=== PATIENT | male | born 1995 | race Caucasian/White ===

== ENCOUNTER 2016-10-07 14:47 | Emergency (ER) | payer MEDICAID ==
[2016-10-07 15:01] VITALS: BMI 28.1
[2016-10-07] MEDS ORDERED: DiphenhydrAMINE 50 mg/ml Inj IVP STA (16:01)
[2016-10-07] MEDS ORDERED: DiphenhydrAMINE 50 mg/ml Inj ONE (16:06)
[2016-10-07 17:10] VITALS: O2SAT 100
--- NOTE | 2016-10-07 18:33 | C.PDOC ---
History Of Present Illness 21 y/o male presents to the ED for evaluation of itchiness and periorbital swelling to b/l eyes which began prior to arrival. Patient states he went to the park a few days ago and began experiencing itchiness to his bilateral eyes. He then went home and took some Benadryl, and his symptoms improved shortly after. Today, patient experienced similar symptoms and presents to the ED for evaluation. He denies throat swelling, difficulty swallowing, voice change, rash , contact with new products/foods. Time Seen by Provider: 10/07/16 15:16 Chief Complaint (Nursing): Eye Problem History Per: Patient History/Exam Limitations: no limitations Onset/Duration Of Symptoms: Hrs Current Symptoms Are (Timing): Still Present Injury To Eye?: No Associated Symptoms: Swelling, Itching Additional History Per: Patient Past Medical History Reviewed: Historical Data, Nursing Documentation, Vital Signs Vital Signs: Last Vital Signs Temp 98.1 F 10/07/16 18:58 Pulse 62 10/07/16 18:58 Resp 16 10/07/16 18:58 BP 132/71 10/07/16 18:58 Pulse Ox 100 10/07/16 19:06 - Medical History PMH: No Chronic Diseases Surgical History: No Surg Hx Family History: States: Unknown Family Hx - Social History Hx Alcohol Use: Yes Hx Substance Use: No - Immunization History Hx Tetanus Toxoid Vaccination: No Hx Influenza Vaccination: No Hx Pneumococcal Vaccination: No Review Of Systems Except As Marked, All Systems Reviewed And Found Negative. Eyes: Positive for: Other (itching and periorbital swelling ) ENT: Negative for: Mouth Swelling, Throat Swelling Skin: Negative for: Rash Physical Exam - Physical Exam Appears: Non-toxic, No Acute Distress Skin: Normal Color, Warm, Dry, No Rash Head: Atraumatic, Normacephalic, Swelling (b/l upper and lower eyelids ) Eye(s): bilateral: PERRL, EOMI, Other (no conjunctival erythema, vision change) Ear(s): Bilateral: Normal Nose: Normal, No Discharge Oral Mucosa: Moist Throat: Normal, No Erythema, No Exudate Neck: Normal ROM, Supple Chest: Symmetrical, No Deformity, No Tenderness Cardiovascular: Rhythm Regular, No Murmur Respiratory: Normal Breath Sounds, No Rales, No Rhonchi, No Wheezing Back: Normal Inspection Extremity: Normal ROM, Capillary Refill (less than 2 seconds ) Neurological/Psych: Oriented x3, Normal Speech, Normal Cognition Gait: Steady ED Course And Treatment O2 Sat by Pulse Oximetry: 100 (on RA) Pulse Ox Interpretation: Normal Progress Note: Pt received Benadryl IV, Pepcid IV, and solu-medrol IV. On reassessment, pt is resting comfortably, showing no signs of distress, and notes his swelling has improved. Patient is stable for discharge with Rx and is advised to f/u with his PMD within 1-2 days for further evaluation. Reassessment Condition: Improved Disposition - Disposition Disposition: HOME/ ROUTINE Disposition Time: 18:31 Condition: STABLE Additional Instructions: Follow up with your PMD within 1-2 days. Return to ED if feel worse. Prescriptions: DiphenhydrAMINE [Benadryl] 25 mg PO .Q4-6 H #30 cap Epinephrine HCl [Epipen Auto-Injector] 0.3 mg MR ONCE PRN #2 units PRN Reason: Allergy Symptoms Famotidine [Pepcid] 20 mg PO BID #20 tab predniSONE [predniSONE Tab] 2 tab PO DAILY #8 tab Instructions: Allergies (ED), Angioedema (ED) Forms: Work Excuse - Clinical Impression Clinical Impression: Allergic angioedema - PA / [employer]STRUCTION EX[employer] / Resident Statement MD/DO has reviewed & agrees with the documentation as recorded. - Scribe Statement The provider has reviewed the documentation as recorded by the Scribe (Yuliet Pride) All medical record entries made by the Scribe were at my direction and personally dictated by me. I have reviewed the chart and agree that the record accurately reflects my personal performance of the history, physical exam, medical decision making, and the department course for this patient. I have also personally directed, reviewed, and agree with the discharge instructions and disposition.
[2016-10-07 18:59] VITALS: BP 132/71; PULSE 62; RESP 16; TEMP 98.1
== END 2016-10-07 18:59 | disposition home or self-care (01) ==
LOC: C.ER 14:47
DX: T78.3XXA Angioneurotic edema, initial encounter (principal)
CPT/HCPCS: 96374; 96375; 99284; J1200; J2930